=== PATIENT | female | born 1965 | race Caucasian/White ===

== ENCOUNTER 2024-12-27 13:35 | Emergency (ER) | payer MEDICAID, OTHER ==
[2024-12-27] MEDS: Morphine 2 MG/ML SYRINGE IM ONE (14:16)
[2024-12-27 14:42] LABS: BASOPHILS ABSOLUTE AUTO 0.1 x10-3/uL (0.0-0.1); BASOPHILS PERCENT AUTO 1.9 % (0.2-1.5); EOSINOPHILS ABSOLUTE AUTO 0.4 x10-3/uL (0.0-0.8); EOSINOPHILS PERCENT AUTO 7.2 % (0.6-8.1); HEMATOCRIT 42.1 % (34.2-48.2); HEMOGLOBIN 14.1 g/dL (11.4-15.5); LYMPHOCYTES ABSOLUTE AUTO 1.5 x10-3/uL (1.0-4.4); LYMPHOCYTES PERCENT AUTO 28.5 % (18.4-52.1); MEAN CORPUSCULAR HEMOGLOBIN 30.4 pg (23.9-33.9); MEAN CORPUSCULAR HGB CONC 33.4 g/dL (31.9-34.8); MEAN PLATELET VOLUME 7.4 fL (7.1-12.4); MONOCYTES ABSOLUTE AUTO 0.4 x10-3/uL (0.3-1.0); MONOCYTES PERCENT AUTO 8.2 % (4.4-15.7); NEUTROPHILS ABSOLUTE AUTO 2.8 x10-3/uL (1.5-6.3); NEUTROPHILS PERCENT AUTO 54.2 % (30.8-76.2); PLATELET COUNT,PLT 354 x10(3)uL (151-488); RED BLOOD CELL COUNT 4.63 x10(6)uL (3.60-5.20); RED CELL DISTRIBUTION WIDTH 14.8 % (12.3-16.5); WHITE BLOOD CELL COUNT,WBC 5.1 x10-3/uL (3.0-10.3)
[2024-12-27 15:18] LABS: A/G RATIO 0.4; ALANINE AMINOTRANSFERASE,ALT 21 U/L (12-36); ALKALINE PHOSPHATASE 170 IU/L (56-112); ASPARTATE AMNIOTRANSFERASE,AST 17 IU/L (5-25); BILIRUBIN TOTAL 0.3 mg/dL (0.1-1.3); CALCIUM 7.7 mg/dL (8.6-10.2); CARBON DIOXIDE,CO2 17 mmol/L (21-32); CREATININE 0.7 mg/dL (0.55-1.02); EST CRCL DRUG DOSING (CG) 83.11 mL/min; ESTIMATED GFR 99 mL/min (>60); PROTEIN TOTAL,TP 6.6 g/dL (6.0-8.0)
[2024-12-27 15:24] LABS: GLUCOSE RANDOM 64 mg/dL (80-116)
[2024-12-27 15:34] LABS: BLOOD UREA NITROGEN,BUN < 5 mg/dL (7-18); BUN/CREATININE RATIO 7.1 (9-20); CHLORIDE,CL 106 mmol/L (100-110); POTASSIUM,K 4.5 mmol/L (3.5-5.3); SODIUM,NA 140 mmol/L (135-145)
[2024-12-27 15:36] LABS: ALBUMIN 1.7 g/dL (3.2-4.6)
[2024-12-27] MEDS: Sodium Chloride 0.9% 1,000 ML IV ONE (17:01)
[2024-12-27] MEDS: Morphine 2 MG/ML SYRINGE IVPUSH ONE (18:17)
[2024-12-27 19:34] VITALS: BP 140/85; PULSE 72
== END 2024-12-27 18:28 | disposition home or self-care (01) ==
LOC: FB.ED 13:35
DX: M25.552 Pain in left hip (principal); M54.2 Cervicalgia; M79.652 Pain in left thigh; M25.512 Pain in left shoulder; M54.9 Dorsalgia, unspecified; Z88.5 Allergy status to narcotic agent; Z88.1 Allergy status to other antibiotic agents; Z88.8 Allergy status to other drugs, medicaments and biological substances; Z88.2 Allergy status to sulfonamides; Z88.6 Allergy status to analgesic agent; Z79.82 Long term (current) use of aspirin; Z79.899 Other long term (current) drug therapy; Z90.710 Acquired absence of both cervix and uterus; W01.0XXA Fall on same level from slipping, tripping and stumbling without subsequent striking against object, initial encounter; Y93.89 Activity, other specified
CPT/HCPCS: 36415; 70450; 71250; 72125; 72128; 72131; 73030; 74176; 80053; 85025; 96361; 96372; 96374; 99284; J2270; J7030